=== PATIENT | female | born 1995 | race African-American/Black ===

== ENCOUNTER 2018-05-31 08:23 | Inpatient (IN) | payer OTHER ==
[2018-05-31] MEDS ORDERED: Adacel (T-DAP) 0.5 ML VIAL ONE (08:38)
[2018-05-31] MEDS ORDERED: CEFAZOLIN/Water 2 GM/20 ML SYRINGE ONE (08:38)
[2018-05-31 08:49] LABS: #Basophils 0.1 thou/uL (0.0-0.2); #Eosinphils 0.1 thou/uL (0.0-0.7); #Lymphocytes 4.3 thou/uL (1.20-3.40); #Monocytes 0.6 thou/uL (0.11-0.59); #Neutrophils 11.2 thou/uL (1.40-6.50); %Basophils 0.8 % (0.0-1.0); %Eosinophils 0.6 % (0.0-10.0); %Lymphocytes 26.1 % (28.0-48.0); %Monocytes 3.7 % (0.0-4.0); %Neutrophils 68.8 % (31.0-61.0); Hemoglobin 12.5 g/dL (12.0-16.0); Mean Corpuscular Hemoglobin 24.6 pg (25.0-35.0); Mean Corpuscular Volume 79.1 fL (78.0-102.0); Mean Platelet Volume 8.6 fL (7.4-10.4); Platelet Count 278 thou/uL (130-400); RBC Distribution Width 15.3 % (11.5-14.5); Red Blood Cell (RBC) Count 5.09 mill/uL (4.00-5.20); White Blood Cell (WBC) Count 16.3 thou/uL (4.8-10.8)
[2018-05-31 08:54] LABS: INR-International Normal Ratio 1.2; PTT 28.8 SEC (22.9-36.1); Prothrombin Time 15.7 SEC (12.0-14.7)
[2018-05-31 09:06] LABS: Acetaminophen Less than 6.0 mcg/mL (10.0-30.0); Alcohol 229 mg/dL (Less than 10); Salicylate Less than 8.0 mg/dL (15.0-30.0)
[2018-05-31 09:07] LABS: ALT (SGPT) 237 U/L (8-55); AST (SGOT) 277 U/L (5-30); Albumin 4.4 g/dL (3.5-5.0); Alkaline Phosphatase 63 U/L (40-150); Anion Gap 17 mmol/L (10-20); BUN (Urea Nitrogen) 5 mg/dL (8.4-21.0); Bilirubin, Total 0.3 mg/dL (0.2-1.2); Calc. Creatinine Clearance 0 mL/min (70-130); Calcium 8.6 mg/dL (7.8-10.44); Carbon Dioxide 17 mmol/L (22-29); Chloride 110 mmol/L (98-107); Globulin 3.7 g/dL (2.4-3.5); Glucose 132 mg/dL (70-105); Potassium 3.3 mmol/L (3.5-5.1); Protein, Total 8.1 g/dL (6.0-8.3); Sodium 141 mmol/L (136-145)
[2018-05-31] MEDS ORDERED: Lidocaine 2% Jelly 5 ML TUBE ONE (09:24)
[2018-05-31] MEDS ORDERED: Lidocaine Viscous Sol 2% 15 ml UD Cup ONE (09:24)
[2018-05-31] MEDS ORDERED: Lidocaine 4% Topical Sol 50 ML BOT ONE (09:24)
[2018-05-31 09:25] LABS: BHCG - Serum Negative (NEGATIVE); Pregs Control Background? CLEAR/WHITE (CLR/WHITE); Pregs Control Bar Appear? YES (CONTROL BAR)
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
[2018-05-31] MEDS ORDERED: Fentanyl 250 MCG/5 ML VIAL ONE (09:28)
[2018-05-31] MEDS ORDERED: Midazolam HCl 2 mg/2 ml Vial ONE (09:28)
[2018-05-31] MEDS ORDERED: Vecuronium 10 MG VIAL ONE ×2 (09:28→16:24)
[2018-05-31] MEDS ORDERED: Ketamine 50 MG/ML VIAL ONE (09:28)
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
[2018-05-31] MEDS ORDERED: Dextrose 5% in Water 1,000 ML IV PRN (10:00)
[2018-05-31] MEDS ORDERED: Dextrose 50% Abboject 50 ML SYRINGE SLOW IVP PRN (10:00)
[2018-05-31] MEDS ORDERED: traMADol HCl 50 MG TAB PO PRN (10:00)
[2018-05-31] MEDS ORDERED: Ondansetron ODT 4 MG TAB PO PRN (10:00)
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
[2018-05-31 10:03] LABS: Bilirubin Negative (Negative); Blood, Urine Large (Negative); Clarity CLEAR (Clear); Glucose, Urine (Dipstick) Negative (Negative); Leukocyte Negative (Negative); Nitrite Negative (Negative); Protein, Urine (Dipstick) 100 mg/dL (Neg-Trace); Specific Gravity, Urine 1.035 (1.002-1.036); Urobilinogen 0.2 mg/dL (0.2-1.0); pH, Urine 6.5 (5.0-9.0)
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
[2018-05-31 10:07] LABS: Amphetamine Not Detected (NotDetected); Bacteria/HPF None Seen HPF (None Seen); Barbiturates Screen Not Detected (NotDetected); Benzodiazepine Screen Not Detected (NotDetected); Cocaine Metabolite Screen Not Detected (NotDetected); Hyaline Casts/LPF 0-3 HYALINE CAST LPF (0-3 Hyaline); Medtox Control Line Valid? VALID (VALID); Medtox Reader # READER 4; Methadone Not Detected (NotDetected); Methamphetamine Not Detected (NotDetected); Opiate Screen Not Detected (NotDetected); Oxycodone Screen Not Detected (NotDetected); Pathc Cast-AUWi Flag 0.29 (0-2.49); Phencyclidine (PCP) Not Detected (NotDetected); RBC/HPF GREATER THAN 50-TNTC HPF (0-3); THC/Cannabinoid Screen Not Detected (NotDetected); Tricyclic Screen Not Detected (NotDetected); Yeast-AUWi Flag 24.4 (0-25.0)
[2018-05-31] MEDS ORDERED: TETANUS AND DIPHTHERIA TOX/PF 0.5 ML DISP.SYRIN IM SCH (10:15)
[2018-05-31] MEDS ORDERED: [UNRECOGNIZED DRUG - REMARK] FS PRN (10:15)
[2018-05-31 10:20] LABS: Renal Epithelial None Seen HPF (0-3); Transitional Epithelial NONE SEEN HPF (0-3)
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
[2018-05-31] MEDS ORDERED: ISOVUE-370 76%-LOCM 1 ML ONE (12:14)
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
[2018-05-31 13:48] LABS: Hemoglobin 11.5 g/dL (12.0-16.0)
[2018-05-31 14:08] LABS: Lactic Acid 6.2 mmol/L (0.5-2.2)
[2018-05-31] MEDS: Acetaminophen 500 MG TAB PO SCH ×3 (15:27→21:32)
[2018-05-31] MEDS: Lactated Ringer's 1,000 ML IV SCH ×2 (15:27→21:28)
[2018-05-31] MEDS: metroNIDAZOLE 500 MG in Premix Bag 1 BAG IVPB SCH ×2 (15:28→17:40)
[2018-05-31] MEDS: Fentanyl 100 MCG/2 ML VIAL SLOW IVP PRN ×3 (15:50→23:51)
[2018-05-31] MEDS ORDERED: PROPOFOL 200 MG/20 ML VIAL ONE (16:24)
[2018-05-31] MEDS ORDERED: Glycopyrrolate 0.2 MG/ML 5 ML SYRINGE ONE (16:24)
[2018-05-31] MEDS ORDERED: Ketorolac Tromethamine 30 MG/ML VIAL ONE (16:24)
[2018-05-31] MEDS ORDERED: Dexamethasone 20 MG/5 ML VIAL ONE (16:24)
[2018-05-31] MEDS ORDERED: Lidocaine 1% PF 5 ML VIAL ONE (16:24)
[2018-05-31] MEDS ORDERED: Ondansetron HCl/PF 4 MG/2 ML Vial ONE (16:24)
[2018-05-31 17:44] LABS: Hemoglobin 11.7 g/dL (12.0-16.0)
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
[2018-05-31] MEDS: Senokot S 8.6-50 MG TAB PO SCH (20:36)
[2018-05-31] MEDS: Aspirin 81 mg Enteric Coated Tablet PO SCH (20:36)
[2018-05-31] MEDS ORDERED: Scopolamine 1.5 mg/72 hour Patch TOP SCH (23:00)
[2018-05-31] MEDS: Ondansetron HCl/PF 4 MG/2 ML Vial IVP PRN (23:00)
[2018-06-01] MEDS: traMADol HCl 50 MG TAB PO PRN ×4 (02:36→20:27)
[2018-06-01] MEDS: metroNIDAZOLE 500 MG in Premix Bag 1 BAG IVPB SCH ×3 (02:43→20:26)
[2018-06-01 04:08] LABS: #Lymphocytes 1.1 thou/uL (1.20-3.40); #Monocytes 1.5 thou/uL (0.11-0.59); #Neutrophils 12.5 thou/uL (1.40-6.50); %Basophils 0.2 % (0.0-1.0); %Eosinophils 0.1 % (0.0-10.0); %Lymphocytes 7.5 % (21.0-51.0); %Monocytes 9.6 % (0.0-10.0); %Neutrophils 82.6 % (42.0-75.0); Hemoglobin 10.1 g/dL (12.0-16.0); Mean Corpuscular HGB CONC 31.1 g/dL (32.0-36.0); Mean Corpuscular Hemoglobin 24.6 pg (27.0-31.0); Mean Corpuscular Volume 79.1 fL (78.0-98.0); Mean Platelet Volume 9.2 fL (7.4-10.4); Platelet Count 203 thou/uL (130-400); RBC Distribution Width 15.2 % (11.5-14.5); Red Blood Cell (RBC) Count 4.11 mill/uL (4.20-5.40); White Blood Cell (WBC) Count 15.2 thou/uL (4.8-10.8)
[2018-06-01 04:39] LABS: ALT (SGPT) 167 U/L (8-55); AST (SGOT) 238 U/L (5-34); Albumin 3.6 g/dL (3.5-5.0); Alkaline Phosphatase 49 U/L (40-150); Anion Gap 15 mmol/L (10-20); BUN (Urea Nitrogen) 11 mg/dL (7.0-18.7); Bilirubin, Total 0.6 mg/dL (0.2-1.2); Calc. Creatinine Clearance 153 mL/min (70-130); Calcium 8.6 mg/dL (7.8-10.44); Carbon Dioxide 20 mmol/L (22-29); Chloride 108 mmol/L (98-107); Estimated GFR-MDRD 73; Globulin 2.8 g/dL (2.4-3.5); Glucose 140 mg/dL (70-105); Magnesium 1.5 mg/dL (1.6-2.6); Phosphorus 3.8 mg/dL (2.3-4.7); Potassium 4.1 mmol/L (3.5-5.1); Protein, Total 6.4 g/dL (6.0-8.3); Sodium 139 mmol/L (136-145)
[2018-06-01] MEDS: Lactated Ringer's 1,000 ML IV SCH (05:08)
[2018-06-01] MEDS: Acetaminophen 500 MG TAB PO SCH ×4 (05:24→17:07)
[2018-06-01] MEDS: Fentanyl 100 MCG/2 ML VIAL SLOW IVP PRN (05:29)
[2018-06-01] MEDS: Polyethylene Glycol 3350 17 GM Packet PO SCH (08:18)
[2018-06-01] MEDS: Senokot S 8.6-50 MG TAB PO SCH ×2 (08:18→20:27)
[2018-06-01] MEDS: Aspirin 81 mg Enteric Coated Tablet PO SCH (08:18)
--- NOTE | 2018-06-01 08:32 | RAD ---
INTRAOPERATIVE FLUOROSCOPY: HISTORY: Femoral shaft fracture. COMPARISON: None. EXPOSURE: 149.7 seconds. 25.42 mGy. FINDINGS: Intraoperative fluoroscopy demonstrates an intramedullary rosy with a single proximal and single dist al interlocking screw. Alignment is near anatomic. Fracture lucency is identified. IMPRESSION: Fluoroscopy as above. POS: [facility]
[2018-06-01] MEDS ORDERED: Magnesium Sulfate 3 GM in Sodium Chloride 0.9% 100 ML IVPB SCH (10:45)
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
[2018-06-01] MEDS: Ondansetron HCl/PF 4 MG/2 ML Vial IVP PRN ×2 (11:25→17:07)
[2018-06-01] MEDS: cefTRIAXone\\ROCEPHIN 2 GM in Sodium Chloride 0.9% 100 ML IVPB SCH (11:29)
[2018-06-01 13:17] VITALS: BMI 34.2
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
[2018-06-01] MEDS: Enoxaparin Sodium 30 MG/0.3 ML SYRINGE SC SCH (20:27)
[2018-06-02] MEDS: Acetaminophen 500 MG TAB PO SCH ×4 (00:58→17:17)
[2018-06-02] MEDS: Ondansetron HCl/PF 4 MG/2 ML Vial IVP PRN ×3 (01:10→20:39)
[2018-06-02] MEDS: metroNIDAZOLE 500 MG in Premix Bag 1 BAG IVPB SCH ×2 (03:53→12:31)
[2018-06-02 05:46] LABS: #Lymphocytes 1.5 thou/uL (1.20-3.40); #Monocytes 1.1 thou/uL (0.11-0.59); #Neutrophils 10.5 thou/uL (1.40-6.50); %Basophils 0.2 % (0.0-1.0); %Eosinophils 0.1 % (0.0-10.0); %Lymphocytes 11.3 % (21.0-51.0); %Monocytes 8.4 % (0.0-10.0); Hemoglobin 8.9 g/dL (12.0-16.0); Mean Corpuscular Hemoglobin 24.6 pg (27.0-31.0); Mean Corpuscular Volume 79.2 fL (78.0-98.0); Mean Platelet Volume 9.3 fL (7.4-10.4); Platelet Count 157 thou/uL (130-400); RBC Distribution Width 14.8 % (11.5-14.5); White Blood Cell (WBC) Count 13.1 thou/uL (4.8-10.8)
[2018-06-02 05:57] LABS: Anion Gap 12 mmol/L (10-20); BUN (Urea Nitrogen) 11 mg/dL (7.0-18.7); Calc. Creatinine Clearance 168 mL/min (70-130); Calcium 8.6 mg/dL (7.8-10.44); Carbon Dioxide 23 mmol/L (22-29); Chloride 103 mmol/L (98-107); Estimated GFR-MDRD 81; Glucose 109 mg/dL (70-105); Phosphorus 2.1 mg/dL (2.3-4.7); Sodium 134 mmol/L (136-145)
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
[2018-06-02] MEDS ORDERED: Potassium Phosphate 15 MMOL in Sodium Chloride 0.9% 250 ML 250 ML IVPB SCH (07:45)
[2018-06-02] MEDS: Lactated Ringer's 1,000 ML IV SCH ×2 (09:26→17:21)
[2018-06-02] MEDS: Ascorbic Acid 500 mg Chewable Tablet PO SCH ×2 (09:28→20:43)
[2018-06-02] MEDS: Enoxaparin Sodium 30 MG/0.3 ML SYRINGE SC SCH ×2 (09:28→20:43)
[2018-06-02] MEDS: Senokot S 8.6-50 MG TAB PO SCH ×2 (09:28→20:43)
[2018-06-02] MEDS: Gabapentin 100 MG CAP PO SCH ×3 (09:28→20:43)
[2018-06-02] MEDS: Polyethylene Glycol 3350 17 GM Packet PO SCH (09:28)
[2018-06-02] MEDS: traMADol HCl 50 MG TAB PO SCH ×3 (09:29→20:41)
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
[2018-06-02] MEDS: cefTRIAXone\\ROCEPHIN 2 GM in Sodium Chloride 0.9% 100 ML IVPB SCH (11:21)
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
[2018-06-02] MEDS ORDERED: ISOVUE-370 76%-LOCM 1 ML ONE (13:57)
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
[2018-06-02] MEDS: Ferrous Sulfate 325 MG TAB PO SCH (17:17)
[2018-06-03] MEDS: Acetaminophen 500 MG TAB PO SCH ×4 (00:07→17:07)
[2018-06-03] MEDS: Lactated Ringer's 1,000 ML IV SCH ×3 (02:49→15:20)
[2018-06-03] MEDS: traMADol HCl 50 MG TAB PO SCH ×4 (02:49→20:49)
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
[2018-06-03] MEDS ORDERED: Metoclopramide HCl 10 MG/2 ML VIAL IVP PRN (07:54)
[2018-06-03] MEDS: Scopolamine 1.5 mg/72 hour Patch TD SCH (08:34)
[2018-06-03] MEDS: Polyethylene Glycol 3350 17 GM Packet PO SCH (08:34)
[2018-06-03] MEDS: Ascorbic Acid 500 mg Chewable Tablet PO SCH ×2 (08:38→20:50)
[2018-06-03] MEDS: Enoxaparin Sodium 30 MG/0.3 ML SYRINGE SC SCH ×2 (08:40→20:48)
[2018-06-03] MEDS: Ferrous Sulfate 325 MG TAB PO SCH ×2 (08:40→17:07)
[2018-06-03] MEDS: Senokot S 8.6-50 MG TAB PO SCH ×2 (08:40→20:49)
[2018-06-03] MEDS: Gabapentin 100 MG CAP PO SCH ×3 (08:41→20:50)
[2018-06-03] MEDS: Ondansetron HCl/PF 4 MG/2 ML Vial IVP PRN ×2 (08:50→20:50)
[2018-06-03] MEDS: cefTRIAXone\\ROCEPHIN 2 GM in Sodium Chloride 0.9% 100 ML IVPB SCH (10:56)
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
[2018-06-04] MEDS: Acetaminophen 500 MG TAB PO SCH ×5 (00:46→23:03)
[2018-06-04] MEDS: Lactated Ringer's 1,000 ML IV SCH ×3 (03:30→20:29)
[2018-06-04] MEDS: traMADol HCl 50 MG TAB PO SCH ×4 (03:30→20:31)
[2018-06-04 06:09] LABS: #Eosinphils 0.3 thou/uL (0.0-0.7); #Lymphocytes 1.5 thou/uL (1.20-3.40); #Monocytes 0.9 thou/uL (0.11-0.59); #Neutrophils 7.5 thou/uL (1.40-6.50); %Basophils 0.1 % (0.0-1.0); %Eosinophils 3.1 % (0.0-10.0); %Lymphocytes 14.9 % (21.0-51.0); %Monocytes 8.3 % (0.0-10.0); %Neutrophils 73.6 % (42.0-75.0); Hemoglobin 7.4 g/dL (12.0-16.0); Mean Corpuscular HGB CONC 30.6 g/dL (32.0-36.0); Mean Corpuscular Hemoglobin 24.4 pg (27.0-31.0); Mean Corpuscular Volume 79.7 fL (78.0-98.0); Mean Platelet Volume 8.4 fL (7.4-10.4); Platelet Count 163 thou/uL (130-400); RBC Distribution Width 14.9 % (11.5-14.5); Red Blood Cell (RBC) Count 3.04 mill/uL (4.20-5.40); White Blood Cell (WBC) Count 10.2 thou/uL (4.8-10.8)
[2018-06-04 06:22] LABS: Anion Gap 9 mmol/L (10-20); BUN (Urea Nitrogen) 6 mg/dL (7.0-18.7); Calc. Creatinine Clearance 199 mL/min (70-130); Calcium 8.5 mg/dL (7.8-10.44); Carbon Dioxide 26 mmol/L (22-29); Chloride 104 mmol/L (98-107); Estimated GFR-MDRD Greater than 90; Glucose 87 mg/dL (70-105); Magnesium 1.6 mg/dL (1.6-2.6); Phosphorus 2.2 mg/dL (2.3-4.7); Potassium 3.7 mmol/L (3.5-5.1); Sodium 135 mmol/L (136-145)
[2018-06-04] MEDS: Ferrous Sulfate 325 MG TAB PO SCH ×2 (07:18→17:17)
[2018-06-04] MEDS: Ascorbic Acid 500 mg Chewable Tablet PO SCH ×2 (07:18→20:30)
[2018-06-04] MEDS: Senokot S 8.6-50 MG TAB PO SCH ×2 (07:19→20:30)
[2018-06-04] MEDS: Gabapentin 100 MG CAP PO SCH ×3 (07:19→20:30)
[2018-06-04] MEDS: Polyethylene Glycol 3350 17 GM Packet PO SCH (07:19)
[2018-06-04] MEDS ORDERED: Potassium Phosphate 15 MMOL in Sodium Chloride 0.9% 250 ML 250 ML IVPB SCH (07:45)
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
[2018-06-04] MEDS: Enoxaparin Sodium 30 MG/0.3 ML SYRINGE SC SCH ×2 (08:35→20:30)
[2018-06-04] MEDS ORDERED: Magnesium 2 GM/NS 0.9% 100 ML 2 GM in Premix Bag 1 BAG IVPB SCH (09:00)
[2018-06-04] MEDS: Famotidine 20 MG TAB PO SCH ×2 (09:53→20:30)
[2018-06-04] MEDS ORDERED: Morphine 4 MG/ML VIAL ONE (10:45)
[2018-06-04] MEDS ORDERED: Morphine 4 MG/ML Carpuject SLOW IVP ONE (10:52)
[2018-06-04] MEDS ORDERED: Morphine 4 MG/ML VIAL IV SCH (11:15)
[2018-06-04] MEDS: Ketorolac Tromethamine 30 MG/ML VIAL IVP SCH ×3 (12:00→23:03)
[2018-06-04] MEDS ORDERED: cefTRIAXone\\ROCEPHIN 2 GM in Sodium Chloride 0.9% 100 ML IVPB SCH (12:45)
[2018-06-04] MEDS ORDERED: metroNIDAZOLE 500 MG in Premix Bag 1 BAG IVPB SCH (12:45)
[2018-06-04] MEDS ORDERED: Fentanyl 100 MCG/2 ML VIAL ONE ×3 (13:31→15:51)
[2018-06-04] MEDS ORDERED: Midazolam HCl 2 mg/2 ml Vial ONE (13:31)
[2018-06-04] MEDS ORDERED: Lidocaine 1% PF 5 ML VIAL ONE (13:37)
[2018-06-04] MEDS ORDERED: Ondansetron HCl/PF 4 MG/2 ML Vial ONE (13:37)
[2018-06-04] MEDS ORDERED: Glycopyrrolate 0.2 MG/ML 5 ML SYRINGE ONE (13:37)
[2018-06-04] MEDS ORDERED: PROPOFOL 200 MG/20 ML VIAL ONE (13:37)
[2018-06-04] MEDS ORDERED: HYDROmorphone 2 MG/ML VIAL ONE (15:15)
[2018-06-04] MEDS ORDERED: Promethazine HCl 25 MG/ML VIAL SLOW IVP PRN (15:45)
[2018-06-04] MEDS ORDERED: HYDROmorphone 2 MG/ML VIAL SLOW IVP PRN (15:45)
[2018-06-04] MEDS ORDERED: Promethazine HCl 25 MG/ML VIAL IM PRN (15:45)
[2018-06-04] MEDS ORDERED: Ondansetron HCl/PF 4 MG/2 ML Vial IVP PRN (15:45)
[2018-06-05] MEDS: traMADol HCl 50 MG TAB PO SCH ×3 (03:00→14:52)
[2018-06-05] MEDS: Acetaminophen 500 MG TAB PO SCH (05:28)
[2018-06-05] MEDS: Ketorolac Tromethamine 30 MG/ML VIAL IVP SCH ×3 (05:28→18:00)
[2018-06-05 06:08] LABS: #Eosinphils 0.3 thou/uL (0.0-0.7); #Lymphocytes 1.9 thou/uL (1.20-3.40); #Monocytes 1.2 thou/uL (0.11-0.59); #Neutrophils 9.2 thou/uL (1.40-6.50); %Basophils 0.3 % (0.0-1.0); %Eosinophils 2.6 % (0.0-10.0); %Lymphocytes 14.8 % (21.0-51.0); %Monocytes 9.5 % (0.0-10.0); %Neutrophils 72.7 % (42.0-75.0); Hemoglobin 7.2 g/dL (12.0-16.0); MDiff Complete? YES; Mean Corpuscular Hemoglobin 24.4 pg (27.0-31.0); Mean Corpuscular Volume 78.6 fL (78.0-98.0); Mean Platelet Volume 8.1 fL (7.4-10.4); Platelet Count 204 thou/uL (130-400); Polychromasia SLIGHT = 2-3 cells (100X) (0-2/hpf); RBC Distribution Width 15.3 % (11.5-14.5); Red Blood Cell (RBC) Count 2.96 mill/uL (4.20-5.40); White Blood Cell (WBC) Count 12.6 thou/uL (4.8-10.8)
[2018-06-05 06:47] LABS: Anion Gap 10 mmol/L (10-20); BUN (Urea Nitrogen) 6 mg/dL (7.0-18.7); Calc. Creatinine Clearance 201 mL/min (70-130); Calcium 8.8 mg/dL (7.8-10.44); Carbon Dioxide 27 mmol/L (22-29); Chloride 104 mmol/L (98-107); Estimated GFR-MDRD Greater than 90; Glucose 96 mg/dL (70-105); Magnesium 1.6 mg/dL (1.6-2.6); Phosphorus 3.4 mg/dL (2.3-4.7); Potassium 3.8 mmol/L (3.5-5.1); Sodium 137 mmol/L (136-145)
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
[2018-06-05] MEDS: Ferrous Sulfate 325 MG TAB PO SCH ×2 (08:36→17:59)
[2018-06-05] MEDS: Enoxaparin Sodium 30 MG/0.3 ML SYRINGE SC SCH ×2 (08:38→21:03)
[2018-06-05] MEDS: Polyethylene Glycol 3350 17 GM Packet PO SCH (08:38)
[2018-06-05] MEDS: Famotidine 20 MG TAB PO SCH (08:38)
[2018-06-05] MEDS: Ascorbic Acid 500 mg Chewable Tablet PO SCH ×2 (08:38→21:03)
[2018-06-05] MEDS: Senokot S 8.6-50 MG TAB PO SCH ×2 (08:38→21:04)
[2018-06-05] MEDS: Gabapentin 100 MG CAP PO SCH (08:38)
[2018-06-05] MEDS: Lactated Ringer's 1,000 ML IV SCH (08:39)
[2018-06-05] MEDS ORDERED: Gabapentin 100 MG CAP PO SCH (09:30)
[2018-06-05] MEDS: Ondansetron HCl/PF 4 MG/2 ML Vial IVP PRN (10:48)
[2018-06-05] MEDS: HYDROcodone/Acetaminophen 7.5/325 mg Tablet PO SCH ×2 (12:14→17:59)
[2018-06-05] MEDS: Gabapentin 300 MG CAP PO SCH ×2 (14:53→21:03)
[2018-06-05] MEDS: HYDROcodone/Acetaminophen 7.5/325 mg Tablet PO PRN (21:04)
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
[2018-06-06] MEDS: HYDROcodone/Acetaminophen 7.5/325 mg Tablet PO SCH ×2 (00:18→05:50)
[2018-06-06] MEDS: Ketorolac Tromethamine 30 MG/ML VIAL IVP SCH ×4 (00:20→17:12)
[2018-06-06 07:25] LABS: Band 6 % (5-11); Eosinophils 1 % (0-10); Hemoglobin 7.1 g/dL (12.0-16.0); Lymphocytes 27 % (21-51); MDiff Complete? YES; Mean Corpuscular HGB CONC 30.7 g/dL (32.0-36.0); Mean Corpuscular Hemoglobin 24.1 pg (27.0-31.0); Mean Corpuscular Volume 78.6 fL (78.0-98.0); Mean Platelet Volume 7.7 fL (7.4-10.4); Metamyelocyte 3 % (0-0); Monocytes 6 % (0-10); Neutrophil 57 % (42-75); Platelet Count 247 thou/uL (130-400); Red Blood Cell (RBC) Count 2.95 mill/uL (4.20-5.40); White Blood Cell (WBC) Count 11.9 thou/uL (4.8-10.8)
[2018-06-06] MEDS: Gabapentin 300 MG CAP PO SCH ×3 (08:58→20:37)
[2018-06-06] MEDS: Ferrous Sulfate 325 MG TAB PO SCH ×2 (08:58→16:24)
[2018-06-06] MEDS: Ascorbic Acid 500 mg Chewable Tablet PO SCH ×2 (08:58→20:38)
[2018-06-06] MEDS: Polyethylene Glycol 3350 17 GM Packet PO SCH (08:58)
[2018-06-06] MEDS: Scopolamine 1.5 mg/72 hour Patch TD SCH (08:58)
[2018-06-06] MEDS: Senokot S 8.6-50 MG TAB PO SCH ×2 (08:58→20:37)
[2018-06-06] MEDS: Enoxaparin Sodium 30 MG/0.3 ML SYRINGE SC SCH ×2 (08:59→20:38)
[2018-06-06] MEDS: HYDROcodone/Acetaminophen 7.5/325 mg Tablet PO PRN (09:01)
[2018-06-06] MEDS ORDERED: Potassium Chloride 40 MEQ in Premix Bag 1 BAG IVPB SCH (10:45)
[2018-06-06] MEDS ORDERED: Magnesium Sulfate 3 GM in Sodium Chloride 0.9% 100 ML IVPB SCH (10:45)
[2018-06-06] MEDS ORDERED: ISOVUE-370 76%-LOCM 1 ML ONE (10:47)
[2018-06-06] MEDS: Potassium Chloride 20 MEQ in Premix Bag 1 BAG IVPB SCH ×2 (12:03→20:33)
[2018-06-06] MEDS: HYDROcodone/Acetaminophen 10/325 mg Tablet PO SCH ×3 (12:03→20:38)
[2018-06-06] MEDS ORDERED: Lorazepam 2 MG/ML VIAL SLOW IVP SCH (13:15)
--- NOTE | 2018-06-06 15:56 | MRI ---
MRI OF BRAIN WITHOUT CONTRAST: 06/06/18 HISTORY: Posttraumatic mental status changes, seizure and syncope. FINDINGS: There is a small foci of restricted diffusion and T2 prolongation in the right cerebellar hemisphere. A tiny single focus is also seen in the left posterior periventricular white matter. No transcortica l infarction, hemorrhage, mid line shift, or abnormal extra-axial fluid collections are seen. The elizabeth tricular size is normal and the basilar cisterns patent. The visualized paranasal sinuses and mastoid air cells are well aerated. IMPRESSION: Subacute versus chronic tiny lacunar infarctions in the right cerebellar and left cerebral hemisphere s. No evidence of diffuse axonal injury. POS: [facility]
--- NOTE | 2018-06-06 16:08 | EKG ---
Test Reason : Blood Pressure : / mmHG Vent. Rate : 101 BPM Atrial Rate : 101 BPM P-R Int : 150 ms QRS Dur : 076 ms QT Int : 368 ms P-R-T Axes : 053 -12 036 degrees QTc Int : 477 ms Sinus tachycardia Nonspecific T wave abnormality Abnormal ECG Confirmed by DESMOND TOLEDO, PRESLEY ([id number]), clinical editor LARRY TONEY ([id number]) on 06/06/2018 4:07:50 PM Referred By: Confirmed By:PRESLEY LOGAN MD
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
[2018-06-07] MEDS: HYDROcodone/Acetaminophen 10/325 mg Tablet PO SCH ×7 (00:12→22:18)
[2018-06-07] MEDS: Ketorolac Tromethamine 30 MG/ML VIAL IVP SCH ×5 (00:12→17:37)
[2018-06-07 06:14] LABS: Anion Gap 9 mmol/L (10-20); BUN (Urea Nitrogen) 5 mg/dL (7.0-18.7); Calc. Creatinine Clearance 201 mL/min (70-130); Calcium 8.8 mg/dL (7.8-10.44); Carbon Dioxide 26 mmol/L (22-29); Chloride 105 mmol/L (98-107); Estimated GFR-MDRD Greater than 90; Glucose 92 mg/dL (70-105); Magnesium 1.8 mg/dL (1.6-2.6); Potassium 3.9 mmol/L (3.5-5.1); Sodium 136 mmol/L (136-145)
[2018-06-07 06:51] LABS: Band 5 % (5-11); Eosinophils 7 % (0-10); Hemoglobin 8.5 g/dL (12.0-16.0); Lymphocytes 19 % (21-51); MDiff Complete? YES; Mean Corpuscular HGB CONC 31.5 g/dL (32.0-36.0); Mean Corpuscular Hemoglobin 25.4 pg (27.0-31.0); Mean Corpuscular Volume 80.4 fL (78.0-98.0); Mean Platelet Volume 7.8 fL (7.4-10.4); Metamyelocyte 1 % (0-0); Monocytes 7 % (0-10); Myelocyte 1 % (0-0); Neutrophil 60 % (42-75); Nucleated RBC 1 % (0); Platelet Count 312 thou/uL (130-400); Polychromasia SLIGHT = 2-3 cells (100X) (0-2/hpf); RBC Distribution Width 16.3 % (11.5-14.5); Red Blood Cell (RBC) Count 3.33 mill/uL (4.20-5.40); White Blood Cell (WBC) Count 13.1 thou/uL (4.8-10.8)
[2018-06-07] MEDS ORDERED: Aspirin 325 mg Enteric Coated Tablet PO SCH (09:00)
[2018-06-07] MEDS: Ferrous Sulfate 325 MG TAB PO SCH ×2 (10:26→17:36)
[2018-06-07] MEDS: Enoxaparin Sodium 30 MG/0.3 ML SYRINGE SC SCH ×2 (10:26→20:32)
[2018-06-07] MEDS: Ascorbic Acid 500 mg Chewable Tablet PO SCH ×2 (10:26→20:32)
[2018-06-07] MEDS: Gabapentin 300 MG CAP PO SCH ×3 (10:26→20:31)
[2018-06-07] MEDS: Polyethylene Glycol 3350 17 GM Packet PO SCH (10:27)
--- NOTE | 2018-06-07 10:43 | ULT ---
VENOUS DOPPLER ULTRASOUND OF THE RIGHT LOWER EXTREMITY: Date: 06/07/18 HISTORY: Right lower extremity edema. TECHNIQUE: Perez scale ultrasound with color flow and spectral Doppler imaging of the deep venous systems of the right lower extremity was performed. FINDINGS: There is good flow, compression, and augmentation noted in the right common femoral, femoral, deep fe moral, popliteal, posterior tibial, and greater saphenous veins. IMPRESSION: No evidence of deep venous thrombosis in the right lower extremity. POS: [facility]
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
[2018-06-07] MEDS: Senokot S 8.6-50 MG TAB PO SCH ×2 (17:19→20:32)
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
--- NOTE | 2018-06-07 18:25 | ULT ---
ULTRASOUND WITH DOPPLER DUPLEX VENOUS LOWER EXTREMITY LEFT: HISTORY: 23-year-old female with left lower extremity pain. TECHNIQUE: Color flow Doppler, spectral waveform analysis of pulsed Doppler, and delaney-scale imaging with lenka ernesto and augmentation, were used to evaluate the left common femoral, femoral, popliteal, posterior t ibial, and superficial femoral, veins; and the proximal portions of the profunda femoral and greater saphenous, veins. FINDINGS: There is normal compressibility, demonstration of blood flow by color Doppler and pulsed Doppler, and response to augmentation, in all interrogated veins. IMPRESSION: Negative. No deep vein thrombosis in the left lower extremity. lula POS: [facility]
[2018-06-08] MEDS: Ketorolac Tromethamine 30 MG/ML VIAL IVP SCH ×2 (01:09→06:40)
[2018-06-08] MEDS: HYDROcodone/Acetaminophen 10/325 mg Tablet PO SCH ×6 (03:50→23:48)
[2018-06-08] MEDS: Polyethylene Glycol 3350 17 GM Packet PO SCH (08:55)
[2018-06-08] MEDS: Gabapentin 300 MG CAP PO SCH ×3 (08:55→21:11)
[2018-06-08] MEDS: Ascorbic Acid 500 mg Chewable Tablet PO SCH ×2 (08:55→21:11)
[2018-06-08] MEDS: Enoxaparin Sodium 30 MG/0.3 ML SYRINGE SC SCH ×2 (08:55→21:12)
[2018-06-08] MEDS: Senokot S 8.6-50 MG TAB PO SCH ×2 (08:55→21:11)
[2018-06-08] MEDS: Ferrous Sulfate 325 MG TAB PO SCH ×2 (08:55→17:48)
[2018-06-08] MEDS ORDERED: Ketorolac Tromethamine 30 MG/ML VIAL IVP PRN (11:36)
[2018-06-08] MEDS ORDERED: Acetaminophen 1,000 MG in Premix Bag 1 BAG IVPB SCH (11:45)
[2018-06-08] MEDS ORDERED: Ketorolac Tromethamine 30 MG/ML VIAL IVP SCH (11:45)
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
[2018-06-08] MEDS: HYDROcodone/Acetaminophen 10/325 mg Tablet PO PRN (21:11)
[2018-06-09] MEDS: HYDROcodone/Acetaminophen 10/325 mg Tablet PO SCH ×6 (02:55→23:07)
[2018-06-09] MEDS ORDERED: Acetaminophen 1,000 MG in Premix Bag 1 BAG IVPB SCH (06:15)
[2018-06-09] MEDS ORDERED: Ketorolac Tromethamine 30 MG/ML VIAL IVP ONE (06:30)
[2018-06-09] MEDS: Scopolamine 1.5 mg/72 hour Patch TD SCH (08:42)
[2018-06-09] MEDS: Ferrous Sulfate 325 MG TAB PO SCH ×2 (08:43→17:59)
[2018-06-09] MEDS: Ascorbic Acid 500 mg Chewable Tablet PO SCH ×2 (08:43→20:36)
[2018-06-09] MEDS: Gabapentin 300 MG CAP PO SCH ×3 (08:43→20:36)
[2018-06-09] MEDS: Enoxaparin Sodium 30 MG/0.3 ML SYRINGE SC SCH (08:43)
[2018-06-09] MEDS: Polyethylene Glycol 3350 17 GM Packet PO SCH (08:43)
[2018-06-09] MEDS: Senokot S 8.6-50 MG TAB PO SCH ×2 (08:44→20:36)
[2018-06-09] MEDS ORDERED: Lidocaine 1% (PF) 30 ML VIAL ONE (11:05)
[2018-06-09] MEDS ORDERED: PROPOFOL 40 ML ONE (11:05)
[2018-06-09] MEDS ORDERED: Midazolam HCl 5 mg/5 ml Vial ONE (11:32)
[2018-06-09] MEDS ORDERED: Fentanyl 100 MCG/2 ML VIAL ONE (11:32)
[2018-06-09] MEDS: Ketorolac Tromethamine 30 MG/ML VIAL IVP SCH ×4 (12:07→23:07)
[2018-06-09] MEDS ORDERED: Benzocaine 20% Spray 60 ML CAN ONE (12:08)
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
[2018-06-09] MEDS: HYDROcodone/Acetaminophen 10/325 mg Tablet PO PRN (20:36)
--- NOTE | 2018-06-09 21:14 | ECHO ---
PREPROCEDURE DIAGNOSIS: Embolic phenomenon. The Anesthesia Department provided with sedation for the patient. Please see their notes for details . After adequate sedation was achieved, the transesophageal probe was inserted into the mouth and into the esophagus without issues. Multiplanar views were then obtained. Left ventricle is normal size with normal wall thickness. Systolic function is normal. with EF estim ated at 55-60%. No regional wall motion abnormalities. Left atrium is normal size. Left atrial appendage is normal size with no evidence of mass or thrombu s. The right atrium is normal size. No mass or thrombus. There is a very prominent eustachian valve. Right ventricle is normal size with normal systolic function. Interatrial septum appears to be intact by color Doppler and by agitated saline study. Aortic valve is structurally normal. Three cusps, no stenosis or regurgitation. Mitral valve is structurally normal. There is mild MR, no stenosis. Tricuspid valve is structurally normal. There is mild TR, no stenosis. Pulmonary valve is structurally normal. There is mild PI, no stenosis. Thoracic aorta is without aneurysmal dilatations or dissections. No atherosclerotic disease. CONCLUSIONS: 1. Normal systolic function, EF of 55-60%. 2. No evidence of any mass or thrombus in any of the major cardiac structures. 3. Interatrial septum appears to be intact by color Doppler and agitated saline study. 4. Mild MR, mild TR, mild AI. 5. No vegetations seen. 6. No atherosclerosis seen.
[2018-06-10] MEDS: HYDROcodone/Acetaminophen 10/325 mg Tablet PO SCH (02:53)
[2018-06-10] MEDS: Ketorolac Tromethamine 30 MG/ML VIAL IVP SCH (05:44)
[2018-06-10] MEDS ORDERED: traMADol HCl 50 MG TAB PO PRN (05:53)
[2018-06-10] MEDS ORDERED: Fentanyl 100 MCG/2 ML VIAL ONE ×2 (07:03→08:47)
[2018-06-10] MEDS ORDERED: CEFAZOLIN/Water 2 GM/20 ML SYRINGE ONE (07:19)
[2018-06-10] MEDS: Ibuprofen 800 MG TAB PO SCH ×3 (07:26→21:39)
[2018-06-10] MEDS: traMADol HCl 50 MG TAB PO SCH ×4 (07:27→23:35)
[2018-06-10] MEDS ORDERED: Vancomycin HCl 1.5 GM in Sodium Chloride 0.9% 250 ML 300 ML IVPB SCH (07:30)
[2018-06-10 07:54] LABS: #Basophils 0.1 thou/uL (0.0-0.2); #Eosinphils 0.4 thou/uL (0.0-0.7); #Lymphocytes 2.5 thou/uL (1.20-3.40); #Neutrophils 7.7 thou/uL (1.40-6.50); %Basophils 0.5 % (0.0-1.0); %Eosinophils 3.1 % (0.0-10.0); %Lymphocytes 21.3 % (21.0-51.0); %Monocytes 8.6 % (0.0-10.0); %Neutrophils 66.6 % (42.0-75.0); Mean Corpuscular HGB CONC 31.1 g/dL (32.0-36.0); Mean Corpuscular Hemoglobin 25.5 pg (27.0-31.0); Mean Corpuscular Volume 82.2 fL (78.0-98.0); Mean Platelet Volume 6.9 fL (7.4-10.4); Platelet Count 540 thou/uL (130-400); RBC Distribution Width 18.2 % (11.5-14.5); Red Blood Cell (RBC) Count 3.51 mill/uL (4.20-5.40); White Blood Cell (WBC) Count 11.5 thou/uL (4.8-10.8)
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
[2018-06-10] MEDS: Ascorbic Acid 500 mg Chewable Tablet PO SCH ×2 (09:03→20:22)
[2018-06-10] MEDS: Famotidine 20 MG TAB PO SCH ×2 (09:03→20:23)
[2018-06-10] MEDS: Ferrous Sulfate 325 MG TAB PO SCH ×2 (09:03→17:23)
[2018-06-10] MEDS: Polyethylene Glycol 3350 17 GM Packet PO SCH (09:03)
[2018-06-10] MEDS: Gabapentin 300 MG CAP PO SCH ×3 (09:03→20:23)
[2018-06-10] MEDS: Senokot S 8.6-50 MG TAB PO SCH ×2 (09:03→20:23)
[2018-06-10] MEDS: Acetaminophen 500 MG TAB PO SCH ×3 (09:03→20:23)
[2018-06-10] MEDS ORDERED: HYDROmorphone 2 MG/ML VIAL ONE (10:33)
[2018-06-10] MEDS ORDERED: Bisacodyl 10 MG SUPP PR PRN (11:00)
[2018-06-10] MEDS ORDERED: Promethazine HCl 25 MG/ML VIAL IM PRN (11:18)
[2018-06-10] MEDS ORDERED: Ondansetron HCl/PF 4 MG/2 ML Vial IVP PRN (11:18)
[2018-06-10] MEDS ORDERED: Promethazine HCl 25 MG/ML VIAL SLOW IVP PRN (11:18)
[2018-06-10] MEDS ORDERED: PHENYLEPHRINE-NS 100 MCG/ML 10 ML SYRINGE ONE (11:32)
[2018-06-10] MEDS ORDERED: PROPOFOL 200 MG/20 ML VIAL ONE (11:32)
[2018-06-10] MEDS ORDERED: Lidocaine 1% PF 5 ML VIAL ONE (11:32)
[2018-06-10] MEDS ORDERED: Glycopyrrolate 0.2 MG/ML 5 ML SYRINGE ONE (11:32)
[2018-06-10] MEDS ORDERED: Succinylcholine Chloride 20 MG/ML 10 ml SYRINGE FS ONE (11:32)
[2018-06-10] MEDS ORDERED: Ondansetron HCl/PF 4 MG/2 ML Vial ONE (11:32)
[2018-06-10] MEDS ORDERED: Dexamethasone 20 MG/5 ML VIAL ONE (11:32)
[2018-06-10] MEDS: CEFAZOLIN 1 GM in Sodium Chloride 0.9% 100 ML IVPB SCH ×2 (13:11→21:39)
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
[2018-06-11] MEDS: Acetaminophen 500 MG TAB PO SCH ×4 (01:35→20:07)
[2018-06-11] MEDS: traMADol HCl 50 MG TAB PO SCH ×4 (05:33→23:30)
[2018-06-11] MEDS: Ibuprofen 800 MG TAB PO SCH ×3 (05:33→22:13)
[2018-06-11] MEDS: Senokot S 8.6-50 MG TAB PO SCH ×2 (08:17→20:08)
[2018-06-11] MEDS: Famotidine 20 MG TAB PO SCH ×2 (08:17→20:08)
[2018-06-11] MEDS: Ferrous Sulfate 325 MG TAB PO SCH ×2 (08:17→17:32)
[2018-06-11] MEDS: Ascorbic Acid 500 mg Chewable Tablet PO SCH ×2 (08:17→20:08)
[2018-06-11] MEDS: Gabapentin 300 MG CAP PO SCH ×3 (08:17→20:08)
[2018-06-11] MEDS: Enoxaparin Sodium 30 MG/0.3 ML SYRINGE SC SCH ×2 (08:17→20:08)
[2018-06-11] MEDS: Polyethylene Glycol 3350 17 GM Packet PO SCH (08:17)
[2018-06-11] MEDS ORDERED: Morphine 4 MG/ML VIAL SLOW IVP SCH (09:35)
[2018-06-11] MEDS: HYDROcodone/Acetaminophen 10/325 mg Tablet PO PRN ×3 (10:38→20:36)
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
[2018-06-12] MEDS: Acetaminophen 500 MG TAB PO SCH ×4 (03:21→20:47)
[2018-06-12] MEDS: traMADol HCl 50 MG TAB PO SCH ×3 (05:23→17:20)
[2018-06-12] MEDS: Ibuprofen 800 MG TAB PO SCH ×3 (05:23→20:48)
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
[2018-06-12] MEDS ORDERED: Magnesium Citrate 300 ML BOT PO SCH (08:30)
[2018-06-12] MEDS: Scopolamine 1.5 mg/72 hour Patch TD SCH (08:47)
[2018-06-12] MEDS: Ascorbic Acid 500 mg Chewable Tablet PO SCH ×2 (08:48→20:47)
[2018-06-12] MEDS: Gabapentin 300 MG CAP PO SCH ×3 (08:48→20:48)
[2018-06-12] MEDS: Polyethylene Glycol 3350 17 GM Packet PO SCH (08:49)
[2018-06-12] MEDS: Famotidine 20 MG TAB PO SCH ×2 (08:49→20:48)
[2018-06-12] MEDS: Ferrous Sulfate 325 MG TAB PO SCH ×2 (08:49→17:19)
[2018-06-12] MEDS: Enoxaparin Sodium 30 MG/0.3 ML SYRINGE SC SCH ×2 (08:49→20:47)
[2018-06-12] MEDS: Bisacodyl 10 MG SUPP PR SCH (08:49)
[2018-06-12] MEDS: Senokot S 8.6-50 MG TAB PO SCH ×2 (08:49→20:48)
[2018-06-12] MEDS: HYDROcodone/Acetaminophen 10/325 mg Tablet PO PRN ×2 (08:50→17:21)
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
[2018-06-13] MEDS: traMADol HCl 50 MG TAB PO SCH ×5 (00:01→23:39)
[2018-06-13] MEDS: Acetaminophen 500 MG TAB PO SCH ×4 (02:06→19:48)
[2018-06-13] MEDS: Ibuprofen 800 MG TAB PO SCH ×3 (06:13→20:57)
[2018-06-13] MEDS: HYDROcodone/Acetaminophen 10/325 mg Tablet PO PRN ×2 (09:18→17:10)
[2018-06-13] MEDS: Famotidine 20 MG TAB PO SCH ×2 (09:20→19:49)
[2018-06-13] MEDS: Ferrous Sulfate 325 MG TAB PO SCH ×2 (09:20→17:12)
[2018-06-13] MEDS: Polyethylene Glycol 3350 17 GM Packet PO SCH (09:20)
[2018-06-13] MEDS: Enoxaparin Sodium 30 MG/0.3 ML SYRINGE SC SCH ×2 (09:20→19:50)
[2018-06-13] MEDS: Gabapentin 300 MG CAP PO SCH ×3 (09:20→19:49)
[2018-06-13] MEDS: Senokot S 8.6-50 MG TAB PO SCH ×2 (09:20→19:50)
[2018-06-13] MEDS: Ascorbic Acid 500 mg Chewable Tablet PO SCH ×2 (09:21→19:50)
[2018-06-13] MEDS: Bisacodyl 10 MG SUPP PR SCH (09:23)
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
[2018-06-13] MEDS: Ondansetron HCl/PF 4 MG/2 ML Vial IVP PRN (20:52)
[2018-06-14] MEDS: Acetaminophen 500 MG TAB PO SCH ×4 (02:46→20:02)
[2018-06-14] MEDS: HYDROcodone/Acetaminophen 10/325 mg Tablet PO PRN ×4 (03:55→20:07)
[2018-06-14 05:19] LABS: #Basophils 0.1 thou/uL (0.0-0.2); #Eosinphils 0.3 thou/uL (0.0-0.7); #Lymphocytes 2.5 thou/uL (1.20-3.40); #Monocytes 0.8 thou/uL (0.11-0.59); #Neutrophils 7.8 thou/uL (1.40-6.50); %Basophils 0.6 % (0.0-1.0); %Eosinophils 2.4 % (0.0-10.0); %Lymphocytes 21.7 % (21.0-51.0); %Monocytes 7.2 % (0.0-10.0); %Neutrophils 68.2 % (42.0-75.0); Hemoglobin 8.7 g/dL (12.0-16.0); Mean Corpuscular HGB CONC 31.1 g/dL (32.0-36.0); Mean Corpuscular Hemoglobin 26.3 pg (27.0-31.0); Mean Corpuscular Volume 84.5 fL (78.0-98.0); Mean Platelet Volume 7.2 fL (7.4-10.4); Platelet Count 710 thou/uL (130-400); RBC Distribution Width 18.7 % (11.5-14.5); Red Blood Cell (RBC) Count 3.31 mill/uL (4.20-5.40); White Blood Cell (WBC) Count 11.5 thou/uL (4.8-10.8)
[2018-06-14] MEDS: Ibuprofen 800 MG TAB PO SCH ×3 (05:25→22:11)
[2018-06-14] MEDS: traMADol HCl 50 MG TAB PO SCH ×4 (05:25→23:36)
[2018-06-14 05:36] LABS: Anion Gap 10 mmol/L (10-20); BUN (Urea Nitrogen) 15 mg/dL (7.0-18.7); Calc. Creatinine Clearance 193 mL/min (70-130); Calcium 10.1 mg/dL (7.8-10.44); Carbon Dioxide 29 mmol/L (22-29); Chloride 100 mmol/L (98-107); Estimated GFR-MDRD Greater than 90; Glucose 88 mg/dL (70-105); Phosphorus 4.7 mg/dL (2.3-4.7); Potassium 4.1 mmol/L (3.5-5.1); Sodium 135 mmol/L (136-145)
[2018-06-14] MEDS: Enoxaparin Sodium 30 MG/0.3 ML SYRINGE SC SCH ×2 (09:16→20:23)
[2018-06-14] MEDS: Ferrous Sulfate 325 MG TAB PO SCH ×2 (09:17→18:29)
[2018-06-14] MEDS: Gabapentin 300 MG CAP PO SCH ×3 (09:17→20:01)
[2018-06-14] MEDS: Senokot S 8.6-50 MG TAB PO SCH ×2 (09:17→20:02)
[2018-06-14] MEDS: Famotidine 20 MG TAB PO SCH ×2 (09:17→20:02)
[2018-06-14] MEDS: Polyethylene Glycol 3350 17 GM Packet PO SCH (09:18)
[2018-06-14] MEDS: Ascorbic Acid 500 mg Chewable Tablet PO SCH ×2 (09:18→20:02)
[2018-06-14] MEDS: Bisacodyl 10 MG SUPP PR SCH (09:20)
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
[2018-06-15] MEDS: HYDROcodone/Acetaminophen 10/325 mg Tablet PO PRN ×2 (01:50→08:51)
[2018-06-15] MEDS: Acetaminophen 500 MG TAB PO SCH ×3 (02:02→14:56)
[2018-06-15] MEDS: traMADol HCl 50 MG TAB PO SCH ×3 (06:38→17:47)
[2018-06-15] MEDS: Ibuprofen 800 MG TAB PO SCH ×2 (06:41→14:56)
[2018-06-15] MEDS: Scopolamine 1.5 mg/72 hour Patch TD SCH (08:50)
[2018-06-15] MEDS: Ascorbic Acid 500 mg Chewable Tablet PO SCH (08:51)
[2018-06-15] MEDS: Polyethylene Glycol 3350 17 GM Packet PO SCH (08:51)
[2018-06-15] MEDS: Senokot S 8.6-50 MG TAB PO SCH (08:52)
[2018-06-15] MEDS: Enoxaparin Sodium 30 MG/0.3 ML SYRINGE SC SCH (08:52)
[2018-06-15] MEDS: Ferrous Sulfate 325 MG TAB PO SCH ×2 (08:52→17:46)
[2018-06-15] MEDS: Gabapentin 300 MG CAP PO SCH ×2 (08:52→14:56)
[2018-06-15] MEDS: Bisacodyl 10 MG SUPP PR SCH (08:52)
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
[2018-06-15 16:22] VITALS: BP 122/78; TEMP 97.5
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
== END 2018-06-15 18:45 | DRG 956 ==
LOC: EDBD 08:23 → ERS 08:23 → SURG B 10:14 → SDC/OP 10:43 → IMCU/EMU 13:00 → SURG B 06-01 18:32
PROVIDERS: ADMIT Surgery; ATTEND Surgery
PROC: 0QS906Z Reposition Left Femoral Shaft with Intramedullary Internal Fixation Device, Open Approach (ICD-10-PCS; principal; 2018-05-31)
PROC: 0HQJXZZ Repair Left Upper Leg Skin, External Approach (ICD-10-PCS; 2018-05-31)
PROC: 0YQ80ZZ Repair Left Femoral Region, Open Approach (ICD-10-PCS; 2018-06-04)
PROC: 0Q9 Lower Bones, Drainage (ICD-10-PCS; 2018-06-04)
PROC: 30233N1 Transfusion of Nonautologous Red Blood Cells into Peripheral Vein, Percutaneous Approach (ICD-10-PCS; 2018-06-06)
PROC: B24BZZ4 Ultrasonography of Heart with Aorta, Transesophageal (ICD-10-PCS; 2018-06-09)
PROC: 0MRN0KZ Replacement of Right Knee Bursa and Ligament with Nonautologous Tissue Substitute, Open Approach (ICD-10-PCS; 2018-06-10)
PROC: 0MRN0KZ Replacement of Right Knee Bursa and Ligament with Nonautologous Tissue Substitute, Open Approach (ICD-10-PCS; 2018-06-10)
PROC: 0SQC0ZZ Repair Right Knee Joint, Open Approach (ICD-10-PCS; 2018-06-10)
PROC: 0QSG34Z Reposition Right Tibia with Internal Fixation Device, Percutaneous Approach (ICD-10-PCS; 2018-06-10)
DX: S72.322 Displaced transverse fracture of shaft of left femur (principal); S36.039A Unspecified laceration of spleen, initial encounter; I63.9 Cerebral infarction, unspecified; S12.100A Unspecified displaced fracture of second cervical vertebra, initial encounter for closed fracture; S82.141A Displaced bicondylar fracture of right tibia, initial encounter for closed fracture; S06.0X9A Concussion with loss of consciousness of unspecified duration, initial encounter; S22.20XA Unspecified fracture of sternum, initial encounter for closed fracture; S37.009A Unspecified injury of unspecified kidney, initial encounter; N28.0 Ischemia and infarction of kidney; D62 Acute posthemorrhagic anemia; V44.5XXA Car driver injured in collision with heavy transport vehicle or bus in traffic accident, initial encounter; Y92.410 Unspecified street and highway as the place of occurrence of the external cause; F10.129 Alcohol abuse with intoxication, unspecified; R13.10 Dysphagia, unspecified; S83.511A Sprain of anterior cruciate ligament of right knee, initial encounter; S81.011A Laceration without foreign body, right knee, initial encounter; R31.29 Other microscopic hematuria; E83.39 Other disorders of phosphorus metabolism; S83.281A Other tear of lateral meniscus, current injury, right knee, initial encounter; S83.421A Sprain of lateral collateral ligament of right knee, initial encounter; R40.2132 Coma scale, eyes open, to sound, at arrival to emergency department; R40.2352 Coma scale, best motor response, localizes pain, at arrival to emergency department; R40.2242 Coma scale, best verbal response, confused conversation, at arrival to emergency department; Y90.7 Blood alcohol level of 200-239 mg/100 ml
CPT/HCPCS: 36415; 36430; 51702; 70450; 70486; 70496; 70498; 70551; 71045; 71260; 71275; 72125; 72170; 74175; 74177; 76001; 80048; 80053; 80306; 80307; 81003; 81015; 82150; 83605; 83690; 83735; 84100; 84146; 84703; 85025; 85610; 85730; 86850; 86900; 86901; 87040; 87086; 90471; 90715; 93005; 93306; 93312; 94640; 94760; 96360; 96361; 96374; A4216; C1713; C1769; G0390; G8978-GP-CM; G8978-GP-CN; G8979-GP-CL; G8987-GO-CM; G8988-GO-CJ; G9162-GN-CI; G9163-GN-CH; J0131; J0690; J0696; J1100; J1170; J1650; J1885; J2001; J2250; J2270; J2405; J2704; J3010; J3370; J3475; J3480; J7050; P9016

== ENCOUNTER 2018-07-01 10:28 | Outpatient (CLI) | payer MEDICAID ==
--- NOTE | 2018-07-01 11:29 | RAD ---
CERVICAL SPINE SERIES THREE VIEWS: History: Follow up of C2 fracture. Comparison: 06-06-18 CT examination. FINDINGS: The fractures along the junction of the body and posterior elements of C2 are again noted, minimally displaced. There is persistent minimal anterolisthesis of approximately 3 mm. The remainder of the ve rtebral bodies are normal in height. Disc spaces are well preserved. IMPRESSION: Stable overall appearance of the C2 fracture. POS: [facility]
== END 2018-07-01 10:29 | disposition home or self-care (01) ==
LOC: TBSIIMAG 10:28
PROVIDERS: ATTEND Surgery
DX: S12.000A Unspecified displaced fracture of first cervical vertebra, initial encounter for closed fracture (principal); S12.100A Unspecified displaced fracture of second cervical vertebra, initial encounter for closed fracture
CPT/HCPCS: 72040

== ENCOUNTER 2018-08-05 11:13 | Outpatient (CLI) | payer MEDICAID ==
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
== END 2018-08-05 11:14 | disposition home or self-care (01) ==
LOC: TBSIIMAG 11:13
PROVIDERS: ATTEND Surgery
DX: S12.100D Unspecified displaced fracture of second cervical vertebra, subsequent encounter for fracture with routine healing (principal); M43.12 Spondylolisthesis, cervical region
CPT/HCPCS: 72040

== ENCOUNTER 2018-08-28 10:05 | Outpatient (CLI) | payer OTHER ==
--- NOTE | 2018-08-28 12:21 | RAD ---
CERVICAL SPINE 4 VIEWS: INDICATION: Followup cervical fracture. COMPARISON: Comparison is made to plain films of 08/05/2018. FINDINGS: The slight anterolisthesis at C2-C3 is unchanged. Lucency and slight displacement of the pedicle at C2 is again seen and appears stable. Vertebrae below C2 remain in normal alignment. IMPRESSION: Stable cervical spine fractures when compared to 08/05/2018. POS: [facility]
== END 2018-08-28 10:06 | disposition home or self-care (01) ==
LOC: TBSIIMAG 10:05
PROVIDERS: ATTEND Surgery
DX: S12.9XXD Fracture of neck, unspecified, subsequent encounter (principal)
CPT/HCPCS: 72040

== ENCOUNTER 2018-10-07 14:21 | Outpatient (CLI) | payer OTHER ==
--- NOTE | 2018-10-07 15:36 | RAD ---
CERVICAL SPINE SERIES: 10/07/18 HISTORY: Followup of fracture. COMPARISON: 08/28/18 study. Vertebral bodies maintain fairly good alignment. A very minimal anterolisthesis of C2 on C3 is noted. Lucency through the pedicle region at C2 is more difficult to appreciate on this study. No soft tiss ue swelling. IMPRESSION: Essentially stable exam. POS: [facility]
== END 2018-10-07 14:22 | disposition home or self-care (01) ==
LOC: TBSIIMAG 14:21
PROVIDERS: ATTEND Surgery
DX: S12.9XXA Fracture of neck, unspecified, initial encounter (principal)
CPT/HCPCS: 72040

== ENCOUNTER 2019-02-15 10:47 | Outpatient (CLI) | payer OTHER ==
--- NOTE | 2019-02-15 11:59 | CT ---
CT Cervical Spine WO Con History: Cervical spine fracture Comparison: CT cervical spine 2018. Radiograph 2019. Findings: Fracture through C2 has healed. There is 2 mm anterolisthesis from prior fracture C2 over C 3 vertebral body, unchanged from prior radiographs. No acute superimposed fracture. Odontoid process is intact. The occipital condyles are intact. Lung apices are clear. Paraspinous soft tissues are unremarkable. Impression: Healed C2 fracture.
--- NOTE | 2019-02-15 13:10 | RAD ---
CERVICAL SPINE SERIES WITH FLEXION AND EXTENSION TOTAL OF 5 VIEWS: HISTORY: Fracture. COMPARISON: CT examination done earlier. FINDINGS: As was described in the CT report, the C2 fracture is healed. There is an anterolisthesis of C2 on C 3 that minimally increases in flexion and on extension view is similar in appearance to the neutral v iew. IMPRESSION: Anterolisthesis of C2 on C3 minimally increasing in flexion. POS: [facility]
--- NOTE | 2019-02-15 13:49 | MRI ---
MRI CERVICAL SPINE WITHOUT CONTRAST: Multiplanar, multisequential imaging of the cervical spine obtained. INDICATION: Cervical radiculopathy. FINDINGS: The cervical vertebrae maintain normal height and alignment. The disk spaces are maintained and exhi bit normal T2 signal. There is no evidence of vertebral body edema or compression. Very mild posterior disk bulge at C5-6 and C6-7 is seen flattening the thecal sac. The anterior suba rachnoid space is preserved and there is no evidence of cervical canal stenosis. No foraminal stenos is seen. cord signal is normal. IMPRESSION: Unremarkable MRI of cervical spine. POS: [facility]
== END 2019-02-15 10:48 | disposition home or self-care (01) ==
LOC: BICCT 10:47
PROVIDERS: ATTEND Surgery
DX: S16.1XXA Strain of muscle, fascia and tendon at neck level, initial encounter (principal); M54.2 Cervicalgia; Z87.81 Personal history of (healed) traumatic fracture; M43.12 Spondylolisthesis, cervical region
CPT/HCPCS: 72050; 72125; 72141